=== PATIENT | male | born 1995 | race Caucasian/White ===

== ENCOUNTER 2017-04-02 17:18 | Emergency (ER) | payer MEDICAID ==
[2017-04-02 18:35] VITALS: BP 129/64; PULSE 70; RESP 16; TEMP 98.6; O2SAT 100
--- NOTE | 2017-04-02 21:34 | ED PDOC ---
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 Notes that at the time he was doing box jumps at the gym when he fell back and hit his head against the cement floor. Patient estimates he fell 4 feet. Localizes the pain to the posterior aspect of the head and rates it a 3/10 in intensity. 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 (-) LOC, vision changes, nausea, vomiting, or prior head injuries. Mother at bedside confirms patient is not exhibiting any changes in behavior. PCP: Dr. Walker Past Medical History Reviewed: Historical Data, Nursing Documentation, Vital Signs Vital Signs: Last Vital Signs Temp 98.6 F 04/02/17 18:31 Pulse 70 04/02/17 18:31 Resp 16 04/02/17 18:31 BP 129/64 04/02/17 18:31 Pulse Ox 100 04/02/17 18:31 - Medical History PMH: No Chronic Diseases - Surgical History Surgical History: No Surg Hx - Family History Family History: States: Unknown Family Hx - Social History Current smoker - smoking cessation education provided: No Ex-Smoker (has not smoked in the last 12 months): No Alcohol: Social Drugs: Denies - Home Medications Home Medications: Ambulatory Orders Medication Instructions Recorded Acetaminophen [Acetaminophen 8 650 mg PO TID PRN #15 tablet.er 04/02/17 Hour] - Allergies Allergies/Adverse Reactions: Allergies Allergy/AdvReac Type Severity Reaction Status Date / Time No Known Allergies Allergy Verified 04/02/17 18:31 Review of Systems ROS Statement: Except As Marked, All Systems Reviewed And Found Negative Eyes: Negative for: Vision Change Gastrointestinal: Negative for: Nausea, Vomiting Neurological: Positive for: Headache. Negative for: Altered Mental Status, Other ((-) LOC) Physical Exam - Reviewed Nursing Documentation Reviewed: Yes Vital Signs Reviewed: Yes - Physical Exam Appears: Positive for: Non-toxic, No Acute Distress Head Exam: Positive for: ATRAUMATIC (no scalp tenderness or hematoma), NORMOCEPHALIC Skin: Positive for: Normal Color, Warm, Dry Eye Exam: Positive for: Normal appearance, EOMI, PERRL Neck: Positive for: Normal, Painless ROM, Supple Cardiovascular/Chest: Positive for: Regular Rate, Rhythm. Negative for: Murmur Respiratory: Positive for: Normal Breath Sounds. Negative for: Respiratory Distress Extremity: Positive for: Normal ROM. Negative for: Deformity Neurologic/Psych: Positive for: Alert, laborer ammunition assembly II-XII (intact), Oriented, Cerebellar Tests (intact), Gait (steady). Negative for: Motor/Sensory Deficits , Aphasia - ECG O2 Sat by Pulse Oximetry: 100 (RA) Pulse Ox Interpretation: Normal Medical Decision Making Medical Decision Makin Initial impression: closed head injury status post fall Initial plan: * Acetaminophen 650mg PO * Re-eval 2127 Upon re-evaluation, patient states he is feeling better. Patient is stable for discharge and will be prescribed Tylenol. Condition: improved Scribe Attestation: Documented by Zuleyka Bolton, acting as a scribe for Jyoti Darby PA-C. Provider Scribe Attestation: All medical record entries made by the Scribe were at my direction and personally dictated by me. I have reviewed the chart and agree that the record accurately reflects my personal performance of the history, physical exam, medical decision making, and the department course for this patient. I have also personally directed, reviewed, and agree with the discharge instructions and disposition. Disposition - Clinical Impression Clinical Impression: Closed head injury, Fall, Headache, Concussion - Patient ED Disposition Is Patient to be Admitted: No Counseled Patient/Family Regarding: Diagnosis, Need For Followup, Rx Given - Disposition Disposition: Routine/Home Disposition Time: 21:28 Condition: IMPROVED Prescriptions: Acetaminophen [Acetaminophen 8 Hour] 650 mg PO TID PRN #15 tablet.er PRN Reason: Headache Instructions: Concussion (ED), Head Injury (ED) Forms: [employer] (Czech), [employer] (Tajik) Print Language: LATVIAN
== END 2017-04-02 22:07 | disposition home or self-care (01) ==
LOC: H.ER 17:18
DX: S06.0X0A Concussion without loss of consciousness, initial encounter (principal); W19.XXXA Unspecified fall, initial encounter; Y92.89 Other specified places as the place of occurrence of the external cause

== ENCOUNTER 2017-04-10 12:32 | Emergency (ER) | payer MEDICAID ==
--- NOTE | 2017-04-10 13:11 | ED PDOC ---
HPI: Influenza Time Seen by Provider: 04/10/17 12:49 Chief Complaint: Fever Chief Complaint (Provider): Fever, headaches, body pain History Per: Patient Exam Limitations: no limitations Onset/Duration Of Symptoms: Hrs (Began last night ) Symptoms include: fever, headache, bodyaches, vomiting (x 1 ). denies: diarrhea , syncope, chest pain, difficulty breathing, rash, blurry vision Sick Contacts (Context): None Risk factors for flu complications: No: adult > 65 years, child < 5 years, child < 2 years, , chronic lung disease, endocrine disorders, heart disease, renal disease, metabolic disease Past Medical History Reviewed: Historical Data, Nursing Documentation, Vital Signs Vital Signs: Last Vital Signs Temp 101.4 F H 04/10/17 12:43 Pulse 100 H 04/10/17 12:43 Resp 16 04/10/17 12:43 BP 101/59 L 04/10/17 12:43 Pulse Ox 100 04/10/17 12:43 - Medical History PMH: No Chronic Diseases - Surgical History Surgical History: No Surg Hx - Family History Family History: States: Unknown Family Hx - Living Arrangements Living Arrangements: With Family - Home Medications Home Medications: Ambulatory Orders Medication Instructions Recorded Acetaminophen [Acetaminophen 8 650 mg PO TID PRN #15 tablet.er 04/02/17 Hour] Oseltamivir [Tamiflu] 75 mg PO BID #10 cap 04/10/17 - Allergies Allergies/Adverse Reactions: Allergies Allergy/AdvReac Type Severity Reaction Status Date / Time No Known Allergies Allergy Verified 04/10/17 12:43 Review of Systems ROS Statement: Except As Marked, All Systems Reviewed And Found Negative Constitutional: Negative for: Fever, Chills Cardiovascular: Negative for: Chest Pain Gastrointestinal: Positive for: Vomiting. Negative for: Abdominal Pain Musculoskeletal: Negative for: Neck Pain Neurological: Positive for: Weakness Physical Exam - Reviewed Nursing Documentation Reviewed: Yes Vital Signs Reviewed: Yes - Physical Exam Appears: Positive for: Well, Non-toxic, No Acute Distress Head Exam: Positive for: ATRAUMATIC, NORMAL INSPECTION, NORMOCEPHALIC Skin: Positive for: Normal Color, Warm, DRY Eye Exam: Positive for: EOMI, Normal appearance, PERRL ENT: Positive for: Normal ENT Inspection Neck: Positive for: Normal, Painless ROM Cardiovascular/Chest: Positive for: Regular Rate, Rhythm Respiratory: Positive for: CNT, Normal Breath Sounds Gastrointestinal/Abdominal: Positive for: Normal Exam, Bowel Sounds, Soft. Negative for: Tenderness Back: Positive for: Normal Inspection Extremity: Positive for: Normal ROM Neurologic/Psych: Positive for: Alert, Oriented Medical Decision Making Medical Decision Making: Motrin given in ER for fever. Repeat vitals stable at discharge. - ECG O2 Sat by Pulse Oximetry: 100 Disposition - Clinical Impression Clinical Impression: Influenza - Patient ED Disposition Is Patient to be Admitted: No Counseled Patient/Family Regarding: Diagnosis, Need For Followup, Rx Given - Disposition Disposition: Routine/Home Disposition Time: 13:07 Condition: GOOD Prescriptions: Oseltamivir [Tamiflu] 75 mg PO BID #10 cap Instructions: Flu, Adult (DC) Forms: [employer] (Portuguese), [facility] ED School/Work Excuse
[2017-04-10 13:34] VITALS: PULSE 88; RESP 18; TEMP 100.4; O2SAT 98
[2017-04-10 13:37] VITALS: BP 147/88
== END 2017-04-10 13:40 | disposition home or self-care (01) ==
LOC: H.ER 12:32
DX: J11.1 Influenza due to unidentified influenza virus with other respiratory manifestations (principal)